=== PATIENT | female | born 1970 | race Caucasian/White ===

== ENCOUNTER → 2017-03-11 | Outpatient (CLI) | payer BC ==
[~2017-03-11] MED LIST: EPIN0.3I6; HYDR200T3; LEVO112T2; NIFE60TA6; OMEP40CA2; POLY1POW4; SERT-138; SUMA100T2; TOPI100T9; TOPI50TA9; ZOLP10TA2
[2017-03-11 15:49] LABS: ANION GAP 7 MEQ/L (8-16); BLOOD UREA NITROGEN 20 MG/DL (7-18); CALCIUM LEVEL 8.9 MG/DL (8.5-10.1); CARBON DIOXIDE LEVEL 27 MEQ/L (21-32); CHLORIDE LEVEL 105 MEQ/L (98-107); CREATININE FOR GFR 0.77 MG/DL (0.55-1.02); GLOMERULAR FILTRATION RATE > 60.0 (>58); GLUCOSE, FASTING 92 MG/DL (70-105); POTASSIUM SERUM 4.2 MEQ/L (3.5-5.1); SODIUM LEVEL 139 MEQ/L (136-145)
[2017-03-12 10:44] LABS: FREE T4 0.69 NG/DL (0.76-1.46)
== END ==
LOC: M LAB 14:42
PROVIDERS: ATTEND Emergency Medicine
DX: R60.9 Edema, unspecified (principal); E03.9 Hypothyroidism, unspecified

== ENCOUNTER 2017-04-21 20:16 | Emergency (ER) | payer BC ==
[~2017-04-21] VITALS: Ht 162.6 cm; Wt 79.1 kg
[2017-04-21] MEDS ORDERED: OMEP40CA2 (20:43)
[2017-04-21] MEDS ORDERED: POLY1POW4 (20:43)
[2017-04-21] MEDS ORDERED: HYDR200T3 (20:43)
[2017-04-21] MEDS ORDERED: TOPI50TA9 (20:43)
[2017-04-21] MEDS ORDERED: ZOLP10TA2 (20:43)
[2017-04-21] MEDS ORDERED: EPIN0.3I6 (20:43)
[2017-04-21] MEDS ORDERED: SERT-138 (20:43)
[2017-04-21] MEDS ORDERED: LEVO112T2 (20:43)
[2017-04-21] MEDS ORDERED: TOPI100T9 (20:43)
[2017-04-21] MEDS ORDERED: SUMA100T2 (20:43)
[2017-04-21] MEDS ORDERED: NIFE60TA6 (20:43)
--- NOTE | 2017-04-21 22:50 | REPUSA ---
Clinical history: antecubital mass. Findings: Real-time ultrasound imaging of the right arm in the antecubital region was performed. Ther e is a well circumscribed echogenic lesion at the site of concern measuring 2.2 by 0.9 I 1.7 cm. No i nfiltrative changes are noted. Normal heterogeneous fibroglandular tissue is otherwise noted. No refugio dence of calcifications are appreciated. No other gross abnormalities. Impression: Findings consistent with a benign lipoma.
[2017-04-22 00:07] VITALS: BP 112/65
--- NOTE | 2017-04-22 09:39 | REP ---
Clinical: Pain and swelling. Technique: AP and lateral views of the right forearm. Comparison: Wrist dated 02/04/2017. Findings: The patient is status post open reduction and fixation for distal radial metaphyseal fracture. Overlying cast material is appreciated. No obvious new, acute fracture, dislocation or obvious pathology is appreciated. Impression: No obvious acute fracture dislocation. As above. Signed by Tal Lamas MD 04/22/2017 09:31 A
== END 2017-04-22 00:11 | disposition home or self-care (01) ==
LOC: M ED 20:16
DX: Z47.89 Encounter for other orthopedic aftercare (principal); D17.39 Benign lipomatous neoplasm of skin and subcutaneous tissue of other sites

== ENCOUNTER 2017-08-09 11:21 | Emergency (ER) | payer BC ==
[~2017-08-09] VITALS: Ht 162.6 cm; Wt 78.5 kg
--- NOTE | 2017-08-09 13:42 | REP ---
Left knee series: Five views. History: Trauma. Findings: Five views of the left knee demonstrate mild diffuse osteopenia. There is no visible fracture or subluxation. No joint effusion is seen. Impression: No fracture noted. Signed by Garfield Grullon MD 08/09/2017 01:33 P
--- NOTE | 2017-08-09 13:43 | REP ---
LEFT ANKLE SERIES: Four views. HISTORY: Trauma. FINDINGS: Four views of the left ankle demonstrate Achilles and plantar calcaneal spurring. There is a small accessory ossicle adjacent to the lateral malleolus. This is unchanged from the December 12, 2012 prior study. No fracture is seen. The mortise is intact. IMPRESSION: No traumatic abnormality noted. Heel spurring and small lateral accessory ossicle. Signed by Garfield Grullon MD 08/09/2017 03:57 P
--- NOTE | 2017-08-09 13:44 | REP ---
LEFT SHOULDER, THREE VIEWS: There is no evidence of an acute fracture, dislocation or intrinsic bone disease. IMPRESSION: No fracture or dislocation. Signed by Leandro Reese MD 08/09/2017 03:53 P
[2017-08-09 14:07] VITALS: BP 118/64
== END 2017-08-09 14:08 | disposition home or self-care (01) ==
LOC: EDBD 11:21 → M ED 11:21
DX: S80.02XA Contusion of left knee, initial encounter (principal); S90.02XA Contusion of left ankle, initial encounter; S40.012A Contusion of left shoulder, initial encounter; W01.0XXA Fall on same level from slipping, tripping and stumbling without subsequent striking against object, initial encounter; Y92.410 Unspecified street and highway as the place of occurrence of the external cause; Y93.89 Activity, other specified; Y99.8 Other external cause status; Z79.899 Other long term (current) drug therapy; Z91.030 Bee allergy status

== ENCOUNTER → 2018-05-23 | Outpatient (CLI) | payer BC ==
[2018-05-23 12:40] LABS: BASO # 0.1 10^3/uL (0.0-0.2); BASO % 0.9 % (0.0-1.0); EOS # 0.4 10^3/uL (0.0-0.50); EOS % 8.1 % (0.0-3.0); HEMATOCRIT 39.5 % (36.0-47.0); HEMOGLOBIN 12.2 g/dl (12.0-15.5); IMMATURE GRANULOCYTE % 0.8 % (0-3.0); LYMPH # 1.1 10^3/uL (1.5-4.5); LYMPH % 21.2 % (24.0-44.0); MEAN CORPUSCULAR HGB CONC 30.9 g/dl (32.0-36.5); MEAN CORPUSCULAR VOLUME 90.6 fl (80.0-96.0); MONO # 0.5 10^3/uL (0.0-0.8); MONO % 9.6 % (0.0-5.0); NEUTROPHILS # 3.1 10^3/uL (1.8-7.7); NEUTROPHILS % 59.4 % (36.0-66.0); PLATELET COUNT, AUTOMATED 242 10^3/uL (150-450); RED BLOOD COUNT 4.36 10^6/uL (4.00-5.40); RED CELL DISTRIBUTION WIDTH 14.2 % (11.5-14.5); WHITE BLOOD COUNT 5.3 10^3/uL (4.0-10.0)
[2018-05-23 13:04] LABS: ALBUMIN 3.7 GM/DL (3.2-5.2); ALBUMIN/GLOBULIN RATIO 0.97 (1.00-1.93); ALKALINE PHOSPHATASE 75 U/L (45-117); ALT/SGPT 30 U/L (12-78); ANION GAP 9 MEQ/L (8-16); AST/SGOT 24 U/L (7-37); BILIRUBIN,TOTAL 0.2 MG/DL (0.2-1.0); BLOOD UREA NITROGEN 18 MG/DL (7-18); CALCIUM LEVEL 7.9 MG/DL (8.5-10.1); CARBON DIOXIDE LEVEL 26 MEQ/L (21-32); CHLORIDE LEVEL 110 MEQ/L (98-107); CHOLESTEROL LEVEL 249 MG/DL (<200); CHOLESTEROL RISK RATIO 2.515 (<5); CREATININE FOR GFR 0.78 MG/DL (0.55-1.30); FREE T4 0.82 NG/DL (0.76-1.46); GLOMERULAR FILTRATION RATE > 60.0 (>58); GLUCOSE, FASTING 89 MG/DL (70-100); HDL CHOLESTEROL 99 MG/DL (>40); LDL CHOLESTEROL 136 MG/DL (<100); NON-HDL-C 150 MG/DL; POTASSIUM SERUM 4.3 MEQ/L (3.5-5.1); SODIUM LEVEL 145 MEQ/L (136-145); TOTAL PROTEIN 7.5 GM/DL (6.4-8.2); TRIGLYCERIDES LEVEL 68 MG/DL (<150)
[2018-05-23 13:08] LABS: ERYTHROCYTE SEDIMENTATION RATE 10 mm/hr (0-20)
== END ==
LOC: M LAB 11:23
DX: E03.9 Hypothyroidism, unspecified (principal); R19.7 Diarrhea, unspecified; G40.409 Other generalized epilepsy and epileptic syndromes, not intractable, without status epilepticus; M32.9 Systemic lupus erythematosus, unspecified
CPT/HCPCS: 83735

== ENCOUNTER → 2018-06-06 | Outpatient (REF) | payer BC | LOC: M LAB REF 09:33 | DX: S81.809A Unspecified open wound, unspecified lower leg, initial encounter (principal) | CPT/HCPCS: 87186 ==

== ENCOUNTER → 2018-07-13 | Outpatient (REF) | payer BC | LOC: M LAB REF 10:27 | DX: R19.7 Diarrhea, unspecified (principal) | CPT/HCPCS: 87507 ==

== ENCOUNTER → 2019-03-08 | Outpatient (CLI) | payer BC ==
[~2019-03-08] MED LIST changes: +EPIN0.3I11; -EPIN0.3I6; -POLY1POW4; +POLY33503
[2019-03-08 10:19] LABS: BASO % 0.8 % (0.0-1.0); EOS # 0.6 10^3/uL (0.0-0.50); EOS % 11.6 % (0.0-3.0); HEMATOCRIT 38.5 % (36.0-47.0); HEMOGLOBIN 12.2 g/dl (12.0-15.5); LYMPH # 1.2 10^3/uL (1.5-4.5); LYMPH % 22.2 % (24.0-44.0); MEAN CORPUSCULAR HEMOGLOBIN 28.3 pg (27.0-33.0); MEAN CORPUSCULAR HGB CONC 31.7 g/dl (32.0-36.5); MEAN CORPUSCULAR VOLUME 89.3 fl (80.0-96.0); MONO # 0.5 10^3/uL (0.0-0.8); MONO % 9.5 % (0.0-5.0); NEUTROPHILS # 2.9 10^3/uL (1.8-7.7); NEUTROPHILS % 55.7 % (36.0-66.0); PLATELET COUNT, AUTOMATED 217 10^3/uL (150-450); RED BLOOD COUNT 4.31 10^6/uL (4.00-5.40); WHITE BLOOD COUNT 5.3 10^3/uL (4.0-10.0)
[2019-03-08 11:09] LABS: ALBUMIN 3.7 GM/DL (3.2-5.2); ALT/SGPT 24 U/L (12-78); BILIRUBIN,TOTAL < 0.1 MG/DL (0.2-1.0); BLOOD UREA NITROGEN 18 MG/DL (7-18); CALCIUM LEVEL 8.2 MG/DL (8.5-10.1); CARBON DIOXIDE LEVEL 25 MEQ/L (21-32); CHLORIDE LEVEL 116 MEQ/L (98-107); CHOLESTEROL LEVEL 209 MG/DL (<200); CHOLESTEROL RISK RATIO 2.322 (<5); CREATININE FOR GFR 0.78 MG/DL (0.55-1.30); FREE T4 0.78 NG/DL (0.76-1.46); GLOMERULAR FILTRATION RATE > 60.0 (>58); GLUCOSE, FASTING 99 MG/DL (70-100); HDL CHOLESTEROL 90 MG/DL (>40); LDL CHOLESTEROL 103 MG/DL (<100); NON-HDL-C 119 MG/DL; POTASSIUM SERUM 3.9 MEQ/L (3.5-5.1); SODIUM LEVEL 148 MEQ/L (136-145); TOTAL PROTEIN 7.3 GM/DL (6.4-8.2); TRIGLYCERIDES LEVEL 82 MG/DL (<150)
== END ==
LOC: M LAB 10:02
PROVIDERS: ATTEND Physician Assistant
DX: E78.2 Mixed hyperlipidemia (principal); E03.9 Hypothyroidism, unspecified; E32.9 Disease of thymus, unspecified

== ENCOUNTER 2019-04-05 12:05 | Emergency (ER) | payer BC ==
[~2019-04-05] VITALS: Ht 160 cm; Wt 83.3 kg
[2019-04-05] MEDS ORDERED: ANAS0.12 (13:13)
[2019-04-05] MEDS ORDERED: TOPA200T7 (13:13)
[2019-04-05] MEDS ORDERED: CVS2CAP PO (13:13)
[2019-04-05 17:29] VITALS: BP 127/70
--- NOTE | 2019-04-06 10:05 | REP ---
RIGHT LOWER EXTREMITY DOPPLER VENOUS ULTRASOUND: 04/05/2019. Comparison: 03/26/2019. Clinical history: Right lower extremity swelling, evaluate for DVT. Technique: The deep venous system of the right lower extremity is evaluated with martinez scale imaging, compression ultrasound, color imaging and duplex Doppler interrogation. Examination from the groin through the popliteal fossa into the proximal calf. Findings: There is full compressibility from the common femoral vein in the inguinal region through the popliteal vein. Color imaging confirms patency throughout the course of the deep venous system. There is respiratory variation and augmented flow at all levels. Impression: 1. No Doppler venous ultrasound evidence of DVT in the right lower extremity. Electronically Signed by Ernesto Gilmore MD 04/06/2019 10:18 A
== END 2019-04-05 17:29 | disposition home or self-care (01) ==
LOC: M ED 12:05
DX: R22.41 Localized swelling, mass and lump, right lower limb (principal); I10 Essential (primary) hypertension; K21.9 Gastro-esophageal reflux disease without esophagitis; G43.909 Migraine, unspecified, not intractable, without status migrainosus; E03.9 Hypothyroidism, unspecified; G40.909 Epilepsy, unspecified, not intractable, without status epilepticus; F42.9 Obsessive-compulsive disorder, unspecified; L98.3 Eosinophilic cellulitis [Wells]; M34.1 CR(E)ST syndrome; Z79.899 Other long term (current) drug therapy; Z79.890 Hormone replacement therapy

== ENCOUNTER → 2019-04-15 | Outpatient (REF) | payer BC ==
[~2019-04-15] MED LIST changes: +ANAS0.12; +CVS2CAP PO; +TOPA200T7
== END ==
LOC: M LAB REF 12:40
PROVIDERS: ATTEND Physician Assistant
DX: S80.211A Abrasion, right knee, initial encounter (principal)

== ENCOUNTER 2019-04-19 22:03 | Emergency (ER) | payer BC ==
[~2019-04-19] VITALS: Ht 162.6 cm; Wt 83.2 kg
[2019-04-19 22:03] VITALS: BP 125/67
== END 2019-04-19 22:50 | disposition home or self-care (01) ==
LOC: M ED 22:03
DX: R60.0 Localized edema (principal); K21.9 Gastro-esophageal reflux disease without esophagitis; E07.9 Disorder of thyroid, unspecified; Z91.030 Bee allergy status; Z79.899 Other long term (current) drug therapy

== ENCOUNTER → 2019-04-27 | Outpatient (CLI) | payer BC ==
--- NOTE | 2019-04-30 17:16 | REP ---
Bilateral lower extremity MR venography: Without contrast: History: Intermittent pain and swelling and discoloration in the posterolateral aspect of the right calf rule out calf venous thrombosis. Technique: 3-D [id number] MR venography is acquired lower extremities without contrast. This was reviewed and at my discretion, IV contrast injection was omitted. Maximum intensity projection images are generated from the source axial images and viewed rotationally. MR venographic findings: There is good visualization of the deep venous system from the groins to the distal calves bilaterally. The common femoral and profunda femoral veins are patent bilaterally. The femoral veins are patent bilaterally. Popliteal veins are normal and symmetric. Venous confluence appears to be intact bilaterally. There is no evidence of calf vein DVT. No cyst or mass is seen in either calf. Impression: No MR evidence of deep venous thrombosis in either lower extremity. Electronically Signed by Garfield Grullon MD 04/28/2019 09:12 A
== END ==
LOC: M RAD 14:47
PROVIDERS: ATTEND Physician Assistant
DX: M79.661 Pain in right lower leg (principal)

== ENCOUNTER → 2020-02-22 | Outpatient (CLI) | payer BC ==
[~2020-02-22] MED LIST changes: -CVS2CAP PO; +LOPE-25 PO; +NIFE1TAB51; -NIFE60TA6; -OMEP40CA2; +OMEP40CA97
[2020-02-22 11:23] LABS: BASO % 0.7 % (0.0-1.0); EOS # 0.6 10^3/uL (0.0-0.5); EOS % 9.1 % (0.0-3.0); HEMATOCRIT 37.4 % (36.0-47.0); HEMOGLOBIN 11.4 g/dl (12.0-15.5); LYMPH # 1.4 10^3/uL (1.5-5.0); LYMPH % 23.4 % (24.0-44.0); MEAN CORPUSCULAR HEMOGLOBIN 27.4 pg (27.0-33.0); MEAN CORPUSCULAR HGB CONC 30.5 g/dl (32.0-36.5); MEAN CORPUSCULAR VOLUME 89.9 fl (80.0-96.0); MONO # 0.6 10^3/uL (0.0-0.8); MONO % 9.6 % (0.0-5.0); NEUTROPHILS # 3.5 10^3/uL (1.5-8.5); NEUTROPHILS % 56.9 % (36.0-66.0); PLATELET COUNT, AUTOMATED 228 10^3/uL (150-450); RED BLOOD COUNT 4.16 10^6/uL (4.00-5.40); WHITE BLOOD COUNT 6.2 10^3/uL (4.0-10.0)
[2020-02-22 11:34] LABS: ALBUMIN 3.7 GM/DL (3.2-5.2); ALT/SGPT 27 U/L (12-78); BILIRUBIN,TOTAL 0.1 MG/DL (0.2-1.0); BLOOD UREA NITROGEN 21 MG/DL (7-18); CARBON DIOXIDE LEVEL 26 MEQ/L (21-32); CHLORIDE LEVEL 113 MEQ/L (98-107); CHOLESTEROL LEVEL 217 MG/DL (<200); CHOLESTEROL RISK RATIO 2.494 (<5); CREATININE FOR GFR 0.85 MG/DL (0.55-1.30); FREE T4 0.81 NG/DL (0.76-1.46); GLOMERULAR FILTRATION RATE > 60.0 (>51); GLUCOSE, FASTING 89 MG/DL (70-100); HDL CHOLESTEROL 87 MG/DL (>40); LDL CHOLESTEROL 115 MG/DL (<100); NON-HDL-C 130 MG/DL; POTASSIUM SERUM 4.5 MEQ/L (3.5-5.1); SODIUM LEVEL 144 MEQ/L (136-145); TOTAL PROTEIN 7.2 GM/DL (6.4-8.2); TRIGLYCERIDES LEVEL 75 MG/DL (<150)
== END ==
LOC: M PLALAB 09:43
PROVIDERS: ATTEND Physician Assistant
DX: E03.9 Hypothyroidism, unspecified (principal); I73.00 Raynaud's syndrome without gangrene; R05 Cough

== ENCOUNTER → 2020-04-14 | Outpatient (CLI) | payer BC, MEDICARE ==
[~2020-04-14] MED LIST changes: +AMBI10TA PO; +DICY10CA13 PO; +MINO100C4 PO
[2020-04-14 17:18] LABS: FREE T4 0.81 NG/DL (0.76-1.46); IMMUNOGLOBULIN A 97.7 MG/DL (70-400); THYROID STIMULATING HORMONE 0.482 uIU/ML (0.358-3.740)
== END ==
LOC: M LAB 16:04
PROVIDERS: ATTEND Internal Medicine Gastroenterology
DX: R19.7 Diarrhea, unspecified (principal)

== ENCOUNTER → 2020-04-16 | Outpatient (REF) | payer BC ==
[2020-04-28 15:07] LABS: FATS NEUTRAL Normal (.); FATS TOTAL Normal (.); PANCREATIC ELASTASE STOOL >500 (>200)
== END ==
LOC: M LAB REF 12:30
PROVIDERS: ATTEND Internal Medicine Gastroenterology
DX: R19.7 Diarrhea, unspecified (principal)

== ENCOUNTER → 2020-04-29 | Outpatient (CLI) | payer BC ==
--- NOTE | 2020-05-19 09:32 | REP ---
ABDOMINAL SITZ MARKER STUDY TECHNIQUE: Two supine views of the abdomen and pelvis. FINDINGS: The bowel gas pattern is nonspecific and no residual sitz markers are identified. Evidence for prior cholecystectomy noted. No organomegaly. Skeletal structures demonstrate chronic dextroconvex scoliosis. IMPRESSION: * Nonspecific bowel gas pattern. * No residual sitz markers noted. MTDD
== END ==
LOC: M RAD 14:26
PROVIDERS: ATTEND Internal Medicine Gastroenterology
DX: R19.7 Diarrhea, unspecified (principal)

== ENCOUNTER → 2020-05-21 | Outpatient (CLI) | payer BC | LOC: M LABSMTC 10:42 | PROVIDERS: ATTEND Anesthesiology | DX: Z01.812 Encounter for preprocedural laboratory examination (principal); Z20.828 Contact with and (suspected) exposure to other viral communicable diseases | CPT/HCPCS: C9803; U0002 ==

== ENCOUNTER 2020-05-24 13:09 | Day surgery (SDC) | payer BC ==
[~2020-05-24] VITALS: Ht 160 cm; Wt 84.7 kg
[~2020-05-24 13:09] MED LIST changes: +LIDOCAINE 2% 100MG/5ML SDV (FOR ANES.) As Ordered ONE; +NS 1,000 ML IV ONE; +propofoL 200 MG/20 ML VIAL As Ordered ONE
[2020-05-24] MEDS ORDERED: fentaNYL 100 MCG/2 ML INJECTION (J3010) As Ordered ONE (13:49)
--- NOTE | 2020-05-24 14:51 | ROOR ---
Patient Name: Anastasia Roblero Procedure Date: 05/24/2020 2:31 PM Date of : 1970 Age: 50 Room: [facility] Gender: Female Note Status: Finalized Procedure: Upper GI endoscopy Indications: Heartburn Providers: Bacilio GOFF MD Referring MD: Laura GUARDADO Requesting Provider: Medicines: Monitored Anesthesia Care Complications: No immediate complications. Procedure: Pre-Anesthesia Assessment: - The heart rate, respiratory rate, oxygen saturations, blood pressure, adequacy of pulmonary ventilation, and response to care were monitored throughout the procedure. The Endoscope was introduced through the mouth, and advanced to the second part of duodenum. The upper GI endoscopy was accomplished without difficulty. The patient tolerated the procedure well. Findings: Moderately severe esophagitis was found in the lower third of the esophagus. Biopsies were taken with a cold forceps for histology. Small Hiatal Hernia. The entire examined stomach was normal. The examined duodenum was normal. Impression: - Moderately severe reflux esophagitis. Rule out Lindsey's esophagus. Biopsied. - Small Hiatal Hernia. - Normal stomach. - Normal examined duodenum. Recommendation: - Use Prilosec (omeprazole) 40 mg PO BID. - (the script was sent to your pharmacy on file) Bacilio Goff MD Bacilio GOFF MD 05/24/2020 2:51:13 PM Electronically signed by Bacilio GOFF MD Number of Addenda: 0 Note Initiated On: 05/24/2020 2:31 PM Estimated Blood Loss: Estimated blood loss: none.
[2020-05-24] MEDS ORDERED: propofoL 200 MG/20 ML VIAL As Ordered ONE (15:03)
--- NOTE | 2020-05-24 15:17 | ROOR ---
Patient Name: Anastasia Roblero Procedure Date: 05/24/2020 2:32 PM Date of : 1970 Age: 50 Room: [facility] Gender: Female Note Status: Finalized Procedure: Colonoscopy Indications: Generalized abdominal pain, Clinically significant diarrhea of unexplained origin, Suspected irritable bowel syndrome Providers: Bacilio MARQUEZ MD Referring MD: Laura GUARDADO Requesting Provider: Medicines: Monitored Anesthesia Care Complications: No immediate complications. Procedure: Pre-Anesthesia Assessment: - The heart rate, respiratory rate, oxygen saturations, blood pressure, adequacy of pulmonary ventilation, and response to care were monitored throughout the procedure. The Colonoscope was introduced through the anus and advanced to 10 cm into the ileum. The colonoscopy was performed without difficulty. The patient tolerated the procedure well. The quality of the bowel preparation was good. Findings: The perianal and digital rectal examinations were normal. The terminal ileum appeared normal. Three sessile polyps were found in the sigmoid colon, hepatic flexure and ascending colon. The polyps were diminutive in size. These polyps were removed with a cold snare. Resection and retrieval were complete. Mild sigmoid diverticulosis and small internal hemorrhoids. The exam was otherwise normal throughout the examined colon. Biopsies for histology were taken with a cold forceps for evaluation of microscopic colitis. Impression: - The examined portion of the ileum was normal. - Three diminutive polyps in the sigmoid colon, at the hepatic flexure and in the ascending colon, removed with a cold snare. Resected and retrieved. - Mild sigmoid diverticulosis and small internal hemorrhoids. - The colon is otherwise normal. - Biopsies were taken with a cold forceps for evaluation of microscopic colitis. Recommendation: - Use fiber, for example Citrucel, Fibercon, Konsyl or Metamucil. - Use Bentyl (dicyclomine) 20 mg PO TID PRN 30 min AC. - Telephone endoscopist for pathology results in 2 weeks. - Repeat colonoscopy in 3 - 5 years for surveillance based on pathology results. Bacilio Marquez MD Bacilio MARQUEZ MD 05/24/2020 3:16:43 PM Electronically signed by Bacilio MARQUEZ MD Number of Addenda: 0 Note Initiated On: 05/24/2020 2:32 PM Estimated Blood Loss: Estimated blood loss: none.
[2020-05-24 15:54] VITALS: BP 104/55
== END 2020-05-24 16:01 | disposition home or self-care (01) ==
LOC: M OPP 13:09
PROVIDERS: ATTEND Internal Medicine Gastroenterology
DX: K63.5 Polyp of colon (principal); K57.30 Diverticulosis of large intestine without perforation or abscess without bleeding; K64.8 Other hemorrhoids; R10.84 Generalized abdominal pain; R19.7 Diarrhea, unspecified; K44.9 Diaphragmatic hernia without obstruction or gangrene; K21.9 Gastro-esophageal reflux disease without esophagitis; R12 Heartburn; Z79.899 Other long term (current) drug therapy; Z88.8 Allergy status to other drugs, medicaments and biological substances; Z91.030 Bee allergy status
CPT/HCPCS: 43239; 45380; 45385; 88305; J3010

== ENCOUNTER 2020-08-18 20:52 | Emergency (ER) | payer BC ==
[~2020-08-18] VITALS: Ht 162.6 cm; Wt 84.5 kg
[~2020-08-18 20:52] MED LIST changes: -LIDOCAINE 2% 100MG/5ML SDV (FOR ANES.) As Ordered ONE; -LOPE-25 PO; +LOPE-26 PO; -NS 1,000 ML IV ONE; -propofoL 200 MG/20 ML VIAL As Ordered ONE
[2020-08-18] MEDS ORDERED: ONDANSETRON 4 MG ORAL DISINTEGRATING TAB PO ONE (21:45)
[2020-08-18] MEDS ORDERED: NORCO, ANEXSIA 5/325MG TABLET (HYDROcodone/ACETAMINOPHEN) PO ONE (21:45)
--- NOTE | 2020-08-18 21:52 | REPVR ---
PROCEDURE INFORMATION: Exam: XR Left Wrist Exam date and time: 08/18/2020 9:03 PM Age: 50 years old Clinical indication: Injury or trauma; Fall; Fracture, traumatic injury; Closed fracture; Wrist; Left TECHNIQUE: Imaging protocol: XR Left wrist. Views: 3 or more views. COMPARISON: No relevant prior studies available. FINDINGS: Diffuse soft tissue swelling involving the wrist. No evidence of an open injury. No foreign body. Impacted transverse acute appearing distal radial metaphyseal fracture centered 12 mm proximal to the distal articular surface, with mild less than 10 degree dorsal tilt of the distal articular surface. No associated ulna fracture. No obvious intra-articular component. Carpal bones align normally in joint spaces are maintained. No scaphoid fracture IMPRESSION: Transverse acute distal radial metaphyseal fracture with mild dorsal articular surface tilt but minimal displacement and no radiographic evidence of a significant articular surface impaction Electronically signed by: Jeff Hussein On 08/18/2020 21:53:02 PM
[2020-08-18] MEDS ORDERED: NORC1TAB7 PO (22:11)
[2020-08-18] MEDS ORDERED: OXYCODONE/APAP 5MG/325MG(BULK FOR ED) 1 TABLET PO ONE (22:15)
[2020-08-18] MEDS ORDERED: NORCO 5/325MG TABLET (BULK FOR ED) PO ONE (22:15)
[2020-08-18 22:36] VITALS: BP 111/58
== END 2020-08-18 22:41 | disposition home or self-care (01) ==
LOC: M ED 20:52
DX: S52.592A Other fractures of lower end of left radius, initial encounter for closed fracture (principal); W19.XXXA Unspecified fall, initial encounter; Y92.099 Unspecified place in other non-institutional residence as the place of occurrence of the external cause; Y93.9 Activity, unspecified; Y99.9 Unspecified external cause status; K21.9 Gastro-esophageal reflux disease without esophagitis; G40.909 Epilepsy, unspecified, not intractable, without status epilepticus; F42.9 Obsessive-compulsive disorder, unspecified; Z79.899 Other long term (current) drug therapy; Z91.030 Bee allergy status
CPT/HCPCS: 29125; 73110; 99284; Q0162

== ENCOUNTER → 2020-08-22 | Outpatient (CLI) | payer BC ==
[~2020-08-22] MED LIST changes: +NORC1TAB7 PO
--- NOTE | 2020-08-23 08:25 | REP ---
INDICATION: PAIN. COMPARISON: Comparison radiographs August 18, 2020.. TECHNIQUE: Three views obtained through overlying cast material. FINDINGS: AP and lateral views taken through overlying cast material demonstrate a slightly impacted distal radial metaphyseal fracture with 4 mm of dorsal displacement. This is similar in alignment to the comparison study August 18, 2020. IMPRESSION: Distal radial metaphyseal fracture with slight displacement and impaction. X-rays through overlying plaster. <Electronically signed by Aric Grullon > 08/22/20 [id number]
== END ==
LOC: M SOG 08:49 → M SMT 08:49
PROVIDERS: ATTEND Orthopaedic Surgery Sports Medicine
DX: S52.592D Other fractures of lower end of left radius, subsequent encounter for closed fracture with routine healing (principal); W19.XXXD Unspecified fall, subsequent encounter; Y92.099 Unspecified place in other non-institutional residence as the place of occurrence of the external cause

== ENCOUNTER → 2020-08-29 | Outpatient (CLI) | payer BC ==
--- NOTE | 2020-08-30 09:28 | REP ---
INDICATION: F/U. COMPARISON: 08/22/2020. TECHNIQUE: Two views left wrist. FINDINGS: Overlying splint obscures underlying osseous detail. Fracture of the distal radius does not appear to have changed in position. IMPRESSION: Stable position and alignment of distal radial fracture. <Electronically signed by Leandro Reese > 08/30/20 [id number]
== END ==
LOC: M SOG 15:45
PROVIDERS: ATTEND Orthopaedic Surgery Sports Medicine
DX: S52.322A Displaced transverse fracture of shaft of left radius, initial encounter for closed fracture (principal)

== ENCOUNTER → 2020-09-05 | Outpatient (CLI) | payer BC ==
--- NOTE | 2020-09-06 09:51 | REP ---
INDICATION: F/U FX. COMPARISON: 08/22/2020, 08/29/2020 TECHNIQUE: AP and lateral views of the left wrist FINDINGS: Examination is limited by overlying cast material. Fracture of the distal radial metaphysis again noted. IMPRESSION: Continued evidence for distal radial metaphyseal fracture. <Electronically signed by Tal Lamas > 09/06/20 [id number]
== END ==
LOC: M SOG 15:11
PROVIDERS: ATTEND Orthopaedic Surgery Sports Medicine
DX: S52.322D Displaced transverse fracture of shaft of left radius, subsequent encounter for closed fracture with routine healing (principal); X58.XXXD Exposure to other specified factors, subsequent encounter

== ENCOUNTER → 2020-09-15 | Outpatient (CLI) | payer BC ==
--- NOTE | 2020-09-15 18:11 | REP ---
INDICATION: A. Follow-up COMPARISON: 09/05/2020, 08/18/2020 TECHNIQUE: AP, lateral views of the left wrist FINDINGS: Transverse fracture through the distal radial metaphysis with dorsal angulation and overlying soft tissue swelling is again appreciated. A very subtle cortical irregularity at the scaphoid waist the represent scaphoid fracture and cannot be further evaluated on current exam. Correlation and follow-up with complete wrist series may be warranted. Underlying pancarpal arthritic changes noted. IMPRESSION: 1. Transverse fracture through the distal radial metaphysis with dorsal angulation again noted and warrants clinical/physical correlation to exclude superimposed acute injury. 2. Limited views cannot exclude congenital cortical irregularity versus subtle fracture of the scaphoid waist. Consider complete wrist radiograph series if necessary. <Electronically signed by Tal Lamas > 09/15/20 [id number]
== END ==
LOC: M SOG 15:59
PROVIDERS: ATTEND Orthopaedic Surgery Sports Medicine
DX: S52.322D Displaced transverse fracture of shaft of left radius, subsequent encounter for closed fracture with routine healing (principal); X58.XXXD Exposure to other specified factors, subsequent encounter; Y92.9 Unspecified place or not applicable

== ENCOUNTER → 2020-09-22 | Outpatient (CLI) | payer BC ==
--- NOTE | 2020-09-23 03:21 | REP ---
INDICATION: F/U LEFT WRIST FX. COMPARISON: 09/15/2020 TECHNIQUE: AP and lateral views of the left wrist FINDINGS: Transverse fracture through the distal radial metaphysis with posterior angulation (Colles fracture) again noted and unchanged in positioning. Distal ulna and carpal bones appear intact and stable. The small cortical irregularity along the lateral margin of the scaphoid bone is unchanged in appearance and this likely represents a small congenital cortical defect rather than fracture. IMPRESSION: Colles fracture of the distal radius. As above. <Electronically signed by Tal Lamas > 09/23/20 [id number]
== END ==
LOC: M SOG 11:28
PROVIDERS: ATTEND Orthopaedic Surgery Sports Medicine
DX: S52.322A Displaced transverse fracture of shaft of left radius, initial encounter for closed fracture (principal)

== ENCOUNTER → 2020-10-03 | Outpatient (CLI) | payer BC ==
--- NOTE | 2020-10-03 18:46 | REP ---
INDICATION: RECHECK LEFT WRIST. COMPARISON: 09/22/2020 TECHNIQUE: AP, lateral views of the left wrist FINDINGS: Evaluation is limited by overlying cast material. There is a transverse mildly displaced fracture through the distal radial metaphysis essentially unchanged in appearance compared to prior examination. Evaluation for subtle periosteal reaction and callus formation is limited by overlying cast material.. Underlying generalized age-related degenerative changes noted. IMPRESSION: Continued evidence for transverse fracture through the distal radial metaphysis. <Electronically signed by Tal Lamas > 10/03/20 [id number]
== END ==
LOC: M SOG 15:33
PROVIDERS: ATTEND Orthopaedic Surgery Sports Medicine
DX: S52.322A Displaced transverse fracture of shaft of left radius, initial encounter for closed fracture (principal); X58.XXXA Exposure to other specified factors, initial encounter; Y92.9 Unspecified place or not applicable

== ENCOUNTER → 2020-10-11 | Outpatient (CLI) | payer BC ==
--- NOTE | 2020-10-11 10:18 | REP ---
INDICATION: PAIN/SWELLING/MASS LT UPPER ARM, R/O DVT. COMPARISON: None. TECHNIQUE: Left upper extremity duplex venous scanning. FINDINGS: The left internal jugular, axillary, brachial, basilic, and cephalic veins are anechoic and compressible in the left upper extremity. Color flow imaging is homogeneous. Spectral Doppler interrogation is unremarkable. There is no evidence of left upper extremity venous thrombosis. There is a 4 x 4 x 7 mm hypoechoic area superficial to the basilic vein in the left antecubital fossa which may be old granulation tissue, lymph node, or prior small hematoma.. IMPRESSION: Negative left upper extremity duplex venous ultrasound. No evidence of venous thrombosis. 4 x 4 x 7 mm hypoechoic area in the soft tissues just anterior to the left basilic vein in the antecubital fossa, likely related to previous IV site. <Electronically signed by Aric Grullon > 10/11/20 [id number]
== END ==
LOC: M RAD 09:14
PROVIDERS: ATTEND Nurse Practitioner Family
DX: R22.32 Localized swelling, mass and lump, left upper limb (principal)

== ENCOUNTER → 2020-11-14 | Outpatient (CLI) | payer BC ==
--- NOTE | 2020-11-15 04:14 | REP ---
INDICATION: F/U FX. COMPARISON: 10/29/2020 TECHNIQUE: AP and lateral views of the left wrist FINDINGS: There is a healing transverse fracture of the distal radial metaphysis with mild dorsal angulation. IMPRESSION: Healing stable fracture of the distal radial metaphysis. <Electronically signed by Tal Lamas > 11/15/20 0412
== END ==
LOC: M SOG 15:29
PROVIDERS: ATTEND Orthopaedic Surgery Sports Medicine
DX: S52.592D Other fractures of lower end of left radius, subsequent encounter for closed fracture with routine healing (principal)

== ENCOUNTER → 2021-03-30 | Outpatient (CLI) | payer BC ==
[~2021-03-30] MED LIST changes: +OMEP40CA4; -OMEP40CA97
[2021-03-30 12:09] LABS: BLOOD UREA NITROGEN 16 MG/DL (7-18); CARBON DIOXIDE LEVEL 26 MEQ/L (21-32); CHLORIDE LEVEL 114 MEQ/L (98-107); CREATININE FOR GFR 0.69 MG/DL (0.55-1.30); GLOMERULAR FILTRATION RATE > 60.0 (>51); GLUCOSE, FASTING 93 MG/DL (70-100); POTASSIUM SERUM 3.8 MEQ/L (3.5-5.1); SODIUM LEVEL 144 MEQ/L (136-145)
[2021-03-30 12:10] LABS: ALBUMIN 3.9 GM/DL (3.2-5.2); ALT/SGPT 25 U/L (12-78); BILIRUBIN,TOTAL 0.2 MG/DL (0.2-1.0); CALCIUM LEVEL 8.4 MG/DL (8.5-10.1); CHOLESTEROL LEVEL 239 MG/DL (<200); CHOLESTEROL RISK RATIO 2.569 (<5); FREE T4 0.96 NG/DL (0.76-1.46); HDL CHOLESTEROL 93 MG/DL (>40); LDL CHOLESTEROL 132 MG/DL (<100); NON-HDL-C 146 MG/DL; THYROID STIMULATING HORMONE 0.493 uIU/ML (0.358-3.740); TOTAL PROTEIN 7.3 GM/DL (6.4-8.2); TRIGLYCERIDES LEVEL 68 MG/DL (<150)
[2021-03-30 12:11] LABS: TOTAL 25(OH) VITAMIN D 16.8 NG/ML (30.0-100.0)
== END ==
LOC: M PLALAB 09:01
PROVIDERS: ATTEND Nurse Practitioner Family
DX: Z00.00 Encounter for general adult medical examination without abnormal findings (principal)

== ENCOUNTER 2021-04-26 14:15 | Observation (INO) | payer BC ==
[~2021-04-26] VITALS: Ht 162.6 cm; Wt 81.7 kg
[~2021-04-26 14:15] MED LIST changes: -HYDR200T3; +HYDR200T3 PO; -LEVO112T2; +LEVO112T2 PO; -NIFE1TAB51; +NIFE1TAB51 PO; -OMEP40CA4; +OMEP40CA4 PO; -TOPA200T7; +TOPA200T7 PO; -TOPI100T9; +TOPI100T9 PO
[2021-04-26] MEDS ORDERED: ONDANSETRON 4MG/2ML VIAL IV ONE (16:45)
[2021-04-26] MEDS: NS 1,000 ML IV SCH ×2 (16:45→22:01)
[2021-04-26 17:03] LABS: BASO % 0.4 % (0.0-1.0); HEMATOCRIT 37.6 % (36.0-47.0); HEMOGLOBIN 12.3 g/dl (12.0-15.5); LYMPH # 0.4 10^3/uL (1.5-5.0); LYMPH % 8.6 % (24.0-44.0); MEAN CORPUSCULAR HEMOGLOBIN 27.8 pg (27.0-33.0); MEAN CORPUSCULAR HGB CONC 32.7 g/dl (32.0-36.5); MEAN CORPUSCULAR VOLUME 84.9 fl (80.0-96.0); MONO # 0.2 10^3/uL (0.0-0.8); MONO % 4.7 % (2.0-8.0); NEUTROPHILS % 84.8 % (36.0-66.0); PLATELET COUNT, AUTOMATED 207 10^3/uL (150-450); RED BLOOD COUNT 4.43 10^6/uL (4.00-5.40); WHITE BLOOD COUNT 4.7 10^3/uL (4.0-10.0)
--- NOTE | 2021-04-26 17:04 | REP ---
INDICATION: CHEST PAIN. COMPARISON: Comparison chest x-ray February 27, 2016. TECHNIQUE: Portable upright AP chest radiograph. FINDINGS: There is increased parenchymal opacity in the right base suggesting an infiltrate. Pleural angles are sharp. Heart size is borderline. Pulmonary vasculature is not increased. There is no evidence of pneumothorax. Monitoring electrodes are seen. IMPRESSION: Subtle increased density right base question pneumonia. <Electronically signed by Aric Grullon > 04/26/21 [id number]
[2021-04-26 17:40] LABS: ALBUMIN 3.6 GM/DL (3.2-5.2); ALT/SGPT 61 U/L (12-78); BILIRUBIN,DIRECT < 0.1 MG/DL (0.0-0.2); BILIRUBIN,TOTAL 0.2 MG/DL (0.2-1.0); BLOOD UREA NITROGEN 20 MG/DL (7-18); CALCIUM LEVEL 8.2 MG/DL (8.5-10.1); CARBON DIOXIDE LEVEL 22 MEQ/L (21-32); CHLORIDE LEVEL 111 MEQ/L (98-107); CK-MB VALUE MASS < 1.0 NG/ML (<3.6); CPK CREATINE PHOSPHOKINASE 86 U/L (26-192); CREATININE FOR GFR 0.79 MG/DL (0.55-1.30); GLOMERULAR FILTRATION RATE > 60.0 (>51); GLUCOSE, FASTING 128 MG/DL (70-100); LIPASE 510 U/L (73-393); MB/CK RELATIVE INDEX 1.16 (< OR =4); POTASSIUM SERUM 3.5 MEQ/L (3.5-5.1); SODIUM LEVEL 142 MEQ/L (136-145); THYROID STIMULATING HORMONE 0.264 uIU/ML (0.358-3.740); TOTAL PROTEIN 7.3 GM/DL (6.4-8.2); TROPONIN I < 0.02 NG/ML (< 0.10)
[2021-04-26] MEDS ORDERED: EPIN0.3I11 INJ (18:56)
[2021-04-26] MEDS ORDERED: D31000TA2 PO (18:56)
[2021-04-26] MEDS ORDERED: TESS100C PO (18:56)
[2021-04-26] MEDS ORDERED: ZOLO100T PO (18:56)
[2021-04-26] MEDS ORDERED: HOME MED LIST COMPLETE! XX SCH (19:00)
--- NOTE | 2021-04-26 19:35 | REPVR ---
PROCEDURE INFORMATION: Exam: CT Abdomen And Pelvis Without Contrast Exam date and time: 04/26/2021 6:47 PM Age: 51 years old Clinical indication: Other: Abd pain, vomiting TECHNIQUE: Imaging protocol: Computed tomography of the abdomen and pelvis without contrast. Radiation optimization: All CT scans at this facility use at least one of these dose optimization techniques: automated exposure control; mA and/or kV adjustment per patient size (includes targeted exams where dose is matched to clinical indication); or iterative reconstruction. COMPARISON: CR ABDOMEN,SITZ MARKER STUDY 05/04/2020 2:43 PM FINDINGS: Lungs: Bibasilar ground-glass infiltrates with associated interstitial thickening, predominantly peripheral in distribution. Mediastinal space: Small hiatal hernia. Liver: Mild hepatic steatosis. Gallbladder and bile ducts: Status post cholecystectomy. No biliary ductal dilatation. Pancreas: Marked atrophy of the pancreatic body and tail. Spleen: Unremarkable. Adrenal glands: Normal. No mass. Kidneys and ureters: Nonobstructing bilateral renal calculi. No hydronephrosis. Stomach and bowel: No bowel wall thickening. No obstruction. No pneumatosis. Appendix: Normal. Intraperitoneal space: No free fluid. No organized fluid collection. No free air. Vasculature: Minimal atherosclerotic disease. No aneurysm. Lymph nodes: No pathologically enlarged lymph nodes. Urinary bladder: Unremarkable as visualized. Reproductive: Unremarkable. Bones/joints: No acute osseous abnormality. Osteopenia. Dextroscoliosis. Degenerative changes. Soft tissues: Unremarkable. IMPRESSION: 1. Limited noncontrast examination without CT evidence of acute intra-abdominal or pelvic pathology. 2. Bibasilar ground-glass infiltrates with associated interstitial thickening, predominantly peripheral in distribution. Commonly reported imaging features of COVID-19 pneumonia are present. Other processes such as influenza pneumonia and organizing pneumonia, as can be seen with drug toxicity and connective tissue disease, can cause a similar imaging pattern. (Reference: Antonio) 3. Additional findings, as above. REFERENCES: Antonio Valerio, et al., [employer] Society of [place] Expert Consensus Statement on Reporting Chest CT Findings Related to COVID-19. Endorsed by the Society of [employer] Radiology, the [place] [employer], and [employer]NA. Published November 11, 2019. Electronically signed by: Scott Francis On 04/26/2021 19:34:55 PM
[2021-04-26] MEDS ORDERED: EPINEPHrine INJ 1 MG/ML 1ML AMP SC PRN (20:45)
[2021-04-26] MEDS ORDERED: zolPIDEM TARTRATE 5 MG TAB PO PRN (20:45)
[2021-04-26] MEDS ORDERED: TOPIRAMATE (TopAMAX) 100 MG TAB PO SCH (21:00)
[2021-04-26] MEDS ORDERED: PILL CUTTER 1 EACH XX PRN (21:20)
--- NOTE | 2021-04-26 21:28 | HPEPDOC ---
[facility] Medical History & Physical Date of Admission Apr 26, 2021 Date of Service: Apr 26, 2021 Primary Care Physician: Ami Polanco MD Attending Physician: LAWRENCE LANE MD History and Physical CHIEF COMPLAINT: Nausea/vomiting HISTORY OF PRESENT ILLNESS: Patient is a 51-year-old female who tested positive for Covid on 04/15 and symptomatic with a cough, fever, nausea/vomiting, and most recently inability to tolerate oral intake. She is a poor historian at baseline so some of her history is obtained through her mother, her healthcare proxy, who is also being admitted for Covid pneumonia. Patient states has not been vaccinated. Per her mother, after being exposed to Covid at home she developed a cough the following day that has been getting progressively worse in the sense that every time she coughs she seems to induce vomiting from the coughing fits themselves. As a result she has been unable to also tolerate any oral intake so she was brought here along with her mother for evaluation in the emergency department. REVIEW OF SYSTEMS: Constitutional: Denies fevers, chills, night sweats, or recent unexpected weight change HEENT: Denies headaches, head trauma, no visual changes or eye pain, denies nosebleeds or difficulty swallowing. Cardiovascular: Denies chest pain, palpitations, or orthopnea. Respiratory: Denies wheezing, or shortness of breath GI: Denies abdominal pain, diarrhea, or constipation : Denies pain with urination or frequency Musculoskeletal: Denies joint pain or swelling Neuro/psych: Denies muscle weakness or sensory loss Skin: Denies skin rashes PAST MEDICAL/SURGICAL HISTORY: Epilepsy SLE OCD Anxiety GERD Hx of Wells syndrome Hypothyroidism Hypertension Hx of migraines Thyroidectomy Cholecystectomy Right wrist surgery SOCIAL HISTORY: Denies tobacco use. Denies alcohol use. Denies marijuana, heroin, cocaine, PCP, or other illicit drug use. Lives at home with mother, father, siblings and a dog No history of recent travel. FAMILY HISTORY: Reviewed, non-contributory ALLERGIES: Please see below. HOME MEDICATIONS: Please see below. PHYSICAL EXAMINATION: VITAL SIGNS: See below GENERAL APPEARANCE: Well-appearing female who appears stated age sitting comfortably in bed in no acute distress HEENT: NC, AT, EOMI, no scleral icterus, dry mucous membranes, no pharyngeal erythema. CARDIOVASCULAR: RRR, normal S1-S2. No murmurs, gallops, rubs. LUNGS: Diminished breath sounds bilaterally with mild rhonchi appreciated in right lower lobe. No wheezes, crackles. There is some mild dullness to percussion in the right lower lobe as well. No use of accessory muscles of respiration. ABDOMEN: Soft, non-tender, non-distended, bowel sounds present. No hepatosplenomegaly. No masses or ecchymosis. No CVA tenderness. EXTREMITIES: No swelling or edema NEUROLOGICAL: No focal or sensory deficits. CN II-XII grossly intact. PSYCHIATRIC: Anxious mood and affect LABORATORY DATA: See below. IMAGIN04/26/2021 portable CXR: "IMPRESSION: Subtle increased density right base question pneumonia." 04/26/2021 CT abd/pelvis without contrast: "IMPRESSION: 1. Limited noncontrast examination without CT evidence of acute intra-abdominal or pelvic pathology. 2. Bibasilar ground-glass infiltrates with associated interstitial thickening, predominantly peripheral in distribution. Commonly reported imaging features of COVID-19 pneumonia are present. Other processes such as influenza pneumonia and organizing pneumonia, as can be seen with drug toxicity and connective tissue disease, can cause a similar imaging pattern. (Reference: Antonio) 3. Additional findings, as above. " MICROBIOLOGY: Please see below. Assessment/Plan: Patient is a 51-year-old female presenting with a 12-day history of progressively worsening nausea/vomiting and inability to tolerate p.o. intake in the setting of Covid pneumonia concerning for dehydration #. Dehydration s/p nausea/vomiting -Gentle IVF hydration, BUN mildly elevated with physical exam signs of dehydration -Starting w/ CLD, and advancing as tolerated -Zofran for N/V #. COVID pneumonia -Day 12 of illness, unvaccinated -On RA currently and outside tx window monoclonal therapy -Pro-Wilver <0.05, cancelling Abx -Tessalon perles for cough #.Difficulty caring for self at home -Mom is admitted w/ COVID pneumonia and is heavily involved in care of patient at home. She is concerned about patient's ability to care for herself without her (the mom) present. #. Epilepsy Continue home topiramate #. SLE Continue home Plaquenil #. GERD Continue home omeprazole #. Hypothyroidism Continue home Synthroid #. Anxiety/OCD Continue home Zoloft #. Hypertension Continue home nifedipine #. Insomnia Continue Ambien at significantly lower dose as we do not want to cause any respiratory depression. DVT prophylaxis: Lovenox Disposition: Observation CODE STATUS: Full code Vital Signs Vital Signs Date Time Temp Pulse Resp B/P (MAP) Pulse Ox O2 Delivery O2 Flow Rate FiO2 04/26/21 19:30 57 19 115/65 (82) 94 Room Air 04/26/21 18:00 97.9 Laboratory Data Labs 24H Laboratory Tests 2 04/26/21 16:48: Immature Granulocyte % (Auto) 1.5, Neutrophils (%) (Auto) 84.8H, Lymphocytes (%) (Auto) 8.6L, Monocytes (%) (Auto) 4.7, Eosinophils (%) (Auto) 0.0, Basophils (%) (Auto) 0.4, Neutrophils # (Auto) 4.0, Lymphocytes # (Auto) 0.4L, Monocytes # (Auto) 0.2, Eosinophils # (Auto) 0.0, Basophils # (Auto) 0.0, Nucleated Red Blood Cells % (auto) 0.0, Anion Gap 9, Glomerular Filtration Rate > 60.0, Calcium Level 8.2L, Total Bilirubin 0.2, Direct Bilirubin < 0.1, Aspartate Amino Transf (AST/SGOT) 44H, Alanine Aminotransferase (ALT/SGPT) 61, Alkaline Phosphatase 62, Total Creatine Kinase 86, Creatine Kinase MB < 1.0, Creatine Kinase MB Relative Index 1.16, Troponin I < 0.02, Total Protein 7.3, Albumin 3.6, Albumin/Globulin Ratio 1.0L, Lipase 510H, Thyroid Stimulating Hormone (TSH) 0.264L, Free Thyroxine 1.30 04/26/21 16:58: Influenza A Immunofluorescence NEGATIVE, Influenza B Immunofluorescence NEGATIVE, SARS Antigen (LFIA) NEGATIVE CBC/BMP Laboratory Tests 04/26/21 16:48 Microbiology Microbiology 04/26/21 Blood Culture, Received Pending 04/26/21 Blood Culture, Received Pending 04/26/21 Respiratory Virus Panel (PCR) (CARLI) - Final, Complete SARS-CoV-2 (COVID 19) Home Medications Scheduled Cholecalciferol (Vitamin D3) (Vitamin D3) 1,000 Unit Tablet, 1,000 UNITS PO DAILY Dicyclomine HCl (Dicyclomine HCl) 10 Mg Capsule, 20 MG PO BID BEFORE BREAKFAST AND DINNER Hydroxychloroquine Sulfate (Hydroxychloroquine Sulfate) 200 Mg Tab, 200 MG PO BID Levothyroxine Sodium (Levothyroxine Sodium) 112 Mcg Tab, 112 MCG PO QAM Nifedipine (Nifedipine ER) 60 Mg Tab, 120 MG PO DAILY Omeprazole (Omeprazole) 40 Mg Cap, 40 MG PO DAILY Sertraline Hcl (Zoloft) 100 Mg Tablet, 100 MG PO BID Topiramate (Topiramate) 100 Mg Tab, 100 MG PO BID TAKES WITH 200MG DOSE FOR 300MG BID Topiramate (Topamax) 200 Mg Tablet, 200 MG PO BID TAKES WITH 100MG DOSE FOR 300MG BID Scheduled PRN Benzonatate (Tessalon Perle) 100 Mg Capsule, 200 MG PO TID PRN for COUGH Epinephrine (Epinephrine) 0.3 Mg/0.3 Ml Auto.injct, 0.3 MG INJ ASDIRECTED PRN for ANAPHYLAXIS Zolpidem Tartrate (Ambien) 10 Mg Tablet, 10 MG PO QHS PRN for SLEEP Allergies Coded Allergies: bee venom protein (honey bee) (Verified Allergy, Unknown, hives, 05/24/20) GME ATTESTATION GME ATTESTATION My faculty preceptor for this patient encounter was physically present during the encounter and was fully available. All aspects of the patient interview, examination, medical decision making process, and medical care plan development were reviewed and approved by the faculty preceptor. The faculty preceptor is aware and concurs with the plan as stated in the body of this note and will attest to such by his/her cosignature. ATTENDING NOTE time of service 1020pm I independently examined the patient, reviewed the case with and agree with the findings as documented by . is a 51 yr old w mild COVID admitted for observation pending PFS consult to ensure that she can be discharged home safely. (her mother who takes care of her is also admitted for hypoxemia 2/2 COVID 19) SB FORTE DO Apr 26, 2021 21:[address] MD Apr 26, 2021 23:42
[2021-04-26 21:56] LABS: FERRITIN 244 NG/ML (8-252)
[2021-04-26] MEDS ORDERED: cefTRIAXone SOD 1 GM in D5W MINI-BAG PLUS 50 ML IV SCH (22:00)
[2021-04-26 22:21] LABS: INR 1.08; PROTHROMBIN TIME 14.5 SECONDS (12.7-14.5)
[2021-04-26 22:22] LABS: PARTIAL THROMBOPLASTIN TIME 35.3 SECONDS (25.9-37.0)
[2021-04-26 22:25] LABS: D-DIMER QUANT 971.95 ng/ml (<500)
[2021-04-26] MEDS ORDERED: NS 1,000 ML IV ONE (22:55)
[2021-04-27] MEDS ORDERED: DOXYCYCLINE HYCLATE 100 MG in D5W MINI-BAG PLUS 100 ML IV SCH ×2
[2021-04-27] MEDS: SERTRALINE 100 MG TAB PO SCH ×3 (00:32→20:28)
[2021-04-27] MEDS: TOPIRAMATE (TopAMAX) 100 MG TAB PO SCH ×3 (00:32→20:28)
[2021-04-27] MEDS: HYDROXYCHLOROQUINE 200 MG TAB PO SCH ×3 (00:32→20:28)
[2021-04-27 06:02] VITALS: BP 97/58
--- NOTE | 2021-04-27 06:27 | ECGEPIP ---
[facility] - ED Test Date: 2021-04-26 Pat Name: VERA CUNNINGHAM Department: Room: - Gender: Female Assistant Foreman: : 1970 Requested By: EVENS Mccord Order Number: [id number] Reading MD: Brandon Cleaning Measurements Intervals Morning Sun Rate: 58 P: 75 NH: 138 QRS: 59 QRSD: 72 T: 28 QT: 464 QTc: 455 Interpretive Statements Sinus bradycardia Nonspecific ST and T wave abnormality BASELINE ARTIFACT AFFECTS INTERPRETATION Electronically Signed on 04-27-2021 6:27:39 EDT by Brandon Cleaning
[2021-04-27 07:15] LABS: BASO % 0.2 % (0.0-1.0); EOS % 0.2 % (0.0-3.0); HEMATOCRIT 34.8 % (36.0-47.0); HEMOGLOBIN 11.1 g/dl (12.0-15.5); LYMPH # 0.8 10^3/uL (1.5-5.0); LYMPH % 18.3 % (24.0-44.0); MEAN CORPUSCULAR HEMOGLOBIN 27.3 pg (27.0-33.0); MEAN CORPUSCULAR HGB CONC 31.9 g/dl (32.0-36.5); MEAN CORPUSCULAR VOLUME 85.5 fl (80.0-96.0); MONO # 0.3 10^3/uL (0.0-0.8); NEUTROPHILS # 3.2 10^3/uL (1.5-8.5); NEUTROPHILS % 73.4 % (36.0-66.0); PLATELET COUNT, AUTOMATED 195 10^3/uL (150-450); RED BLOOD COUNT 4.07 10^6/uL (4.00-5.40); WHITE BLOOD COUNT 4.3 10^3/uL (4.0-10.0)
[2021-04-27 07:34] LABS: BLOOD UREA NITROGEN 14 MG/DL (7-18); CALCIUM LEVEL 7.4 MG/DL (8.5-10.1); CARBON DIOXIDE LEVEL 24 MEQ/L (21-32); CHLORIDE LEVEL 114 MEQ/L (98-107); CREATININE FOR GFR 0.67 MG/DL (0.55-1.30); GLOMERULAR FILTRATION RATE > 60.0 (>51); GLUCOSE, FASTING 97 MG/DL (70-100); MAGNESIUM LEVEL 1.9 MG/DL (1.8-2.4); POTASSIUM SERUM 3.2 MEQ/L (3.5-5.1); SODIUM LEVEL 143 MEQ/L (136-145)
[2021-04-27 08:00] VITALS: BP 108/54; O2SAT 94
[2021-04-27] MEDS: ENOXAPARIN 40MG/0.4ML SYRINGE (J1650 PER 10MG) SC SCH (08:58)
[2021-04-27] MEDS: LEVOTHYROXINE 112MCG TABLET (0.112MG) PO SCH (08:58)
[2021-04-27] MEDS: NIFEdipine 30 MG XL TAB PO SCH (09:48)
[2021-04-27] MEDS: OMEPRAZOLE 20 MG CAP PO SCH (09:48)
[2021-04-27] MEDS: DICYCLOMINE 10 MG CAP PO SCH ×2 (09:48→17:03)
[2021-04-27] MEDS ORDERED: POTASSIUM CHLORIDE 10MEQ SR TABLET PO ONE (10:30)
[2021-04-27] MEDS: ONDANSETRON 4MG/2ML VIAL IV PRN ×2 (11:06→21:40)
[2021-04-27] MEDS: BENZONATATE 100MG CAPSULE PO PRN ×2 (11:06→21:40)
[2021-04-27 12:00] VITALS: O2SAT 96
[2021-04-27] MEDS ORDERED: CEPACOL LOZENGE PO PRN (12:35)
[2021-04-27 15:36] VITALS: BP 108/53
--- NOTE | 2021-04-27 15:38 | IPNPDOC ---
Subjective Date Seen The patient was seen on 04/27/21. Subjective Chief Complaint/HPI Patient complaining of severe bouts of coughing episodes of vomiting associated with a cough. The cough is dry with no production of any phlegm. Continues to have poor appetite however has been able to tolerate liquids. No fever or chills. No respiratory difficulty. Just feels very weak and tired. Objective Physical Examination General Exam: Positive: Alert, Cooperative, No Acute Distress Eye Exam: Positive: PERRLA, Conjunctiva & lids normal, EOMI; Negative: Sclera icteric ENT Exam: Positive: Atraumatic, Mucous membr. moist/pink, Pharynx Normal Neck Exam: Positive: Supple; Negative: JVD, thyromegaly Chest Exam: Positive: Other (Fine crackles at both the bases); Negative: Rhonchi, Wheezing Heart Exam: Positive: Rate Normal, Regular Rhythm, Normal S1, Normal S2; Negative: Murmurs, Rubs Abdomen Exam: Positive: Normal bowel sounds, Soft; Negative: Tenderness Extremity Exam: Negative: Clubbing, Cyanosis, Edema Neuro Exam: Positive: Normal Speech, Strength at 5/5 X4 ext, Normal Tone Assessment /Plan Assessment Patient is a 51-year-old female with past medical history of epilepsy, SLE, OCD, anxiety, Wells syndrome, GERD, hypothyroid, hypertension, migraine, intellectual disability dependent on mom for a lot of her day-to-day care who tested positive for Covid on 04/15 and symptomatic with a cough, fever, nausea/vomiting, and most recently inability to tolerate oral intake. She is a poor historian at baseline so some of her history is obtained through her mother, her healthcare proxy, who was also admitted for Covid pneumonia. Patient was admitted for Covid pneumonia with the severe nausea vomiting and inability to tolerate p.o. food. Patient has no hypoxia. I did advance her diet to regular however after having lunch she again vomited it out. She has been able to tolerate liquids. Dehydration s/p nausea/vomiting Received IV fluid Tolerating p.o. liquids Will advance as tolerated Continue symptomatic treatment with Zofran, PPI COVID pneumonia Day 12 of illness, unvaccinated On RA currently and outside tx window monoclonal therapy Tessalon perles for cough Epilepsy Continue home topiramate SLE Continue home Plaquenil GERD Continue home omeprazole Hypothyroidism Continue home Synthroid Anxiety/OCD Continue home Zoloft Hypertension Continue home nifedipine Insomnia Continue Ambien at significantly lower dose as we do not want to cause any respiratory depression. Plan/VTE VTE Prophylaxis Ordered?: Yes VS, I&O, 24H, Fishbone Vital Signs/I&O Vital Signs Date Time Temp Pulse Resp B/P (MAP) Pulse Ox O2 Delivery O2 Flow Rate FiO2 04/27/21 12:00 96 Room Air 04/27/21 09:48 108/52 04/27/21 08:00 96.4 56 18 04/27/21 06:12 2.0 I&O- Last 24 Hours up to 6 AM 04/27/21 06:00 Intake Total 1493 ml Output Total 0 ml Balance 1493 ml Laboratory Data 24H LABS Laboratory Tests 2 04/26/21 16:48: Immature Granulocyte % (Auto) 1.5, Neutrophils (%) (Auto) 84.8H, Lymphocytes (%) (Auto) 8.6L, Monocytes (%) (Auto) 4.7, Eosinophils (%) (Auto) 0.0, Basophils (%) (Auto) 0.4, Neutrophils # (Auto) 4.0, Lymphocytes # (Auto) 0.4L, Monocytes # (Auto) 0.2, Eosinophils # (Auto) 0.0, Basophils # (Auto) 0.0, Nucleated Red Blood Cells % (auto) 0.0, Anion Gap 9, Glomerular Filtration Rate > 60.0, Calcium Level 8.2L, Ferritin 244, Total Bilirubin 0.2, Direct Bilirubin < 0.1, Aspartate Amino Transf (AST/SGOT) 44H, Alanine Aminotransferase (ALT/SGPT) 61, Alkaline Phosphatase 62, Total Creatine Kinase 86, Creatine Kinase MB < 1.0, Creatine Kinase MB Relative Index 1.16, Troponin I < 0.02, Total Protein 7.3, Albumin 3.6, Albumin/Globulin Ratio 1.0L, Lipase 510H, Thyroid Stimulating Hormone (TSH) 0.264L, Free Thyroxine 1.30 04/26/21 16:58: Influenza A Immunofluorescence NEGATIVE, Influenza B Immunofluorescence NEGATI VE, SARS Antigen (LFIA) NEGATIVE 04/26/21 18:13: Procalcitonin <0.05 04/26/21 22:03: Prothrombin Time 14.5H, Prothromb Time International Ratio 1.08, Activated P artial Thromboplast Time 35.3, Fibrinogen 381, D-Dimer, Quantitative 971.95H 04/27/21 06:54: Immature Granulocyte % (Auto) 0.9, Neutrophils (%) (Auto) 73.4H, Lymphocytes (%) (Auto) 18.3L, Monocytes (%) (Auto) 7.0, Eosinophils (%) (Auto) 0.2, Basophils (%) (Auto) 0.2, Neutrophils # (Auto) 3.2, Lymphocytes # (Auto) 0.8L, Monocytes # (Auto) 0.3, Eosinophils # (Auto) 0.0, Basophils # (Auto) 0.0, Nucleated Red Blood Cells % (auto) 0.0, Anion Gap 5L, Glomerular Filtration Rate > 60.0, Calcium Level 7.4L, Magnesium Level 1.9, Procalcitonin <0.05 04/27/21 06:55: 04/27/21 12:13: CBC/BMP Laboratory Tests 04/26/21 16:48 04/27/21 06:54 Microbiology Microbiology 04/26/21 Blood Culture, Received Pending 04/26/21 Blood Culture, Received Pending 04/26/21 Respiratory Virus Panel (PCR) (CARLI) - Final, Complete SARS-CoV-2 (COVID 19) Nicole Yun MD Apr 27, 2021 15:38
[2021-04-27] MEDS: ACETAMINOPHEN TAB 650MG DOSE (2X325MG) PO PRN ×2 (15:40→22:45)
[2021-04-27 16:00] VITALS: O2SAT 96
[2021-04-27 20:00] VITALS: O2SAT 96
[2021-04-28] VITALS: O2SAT 94
[2021-04-28 04:00] VITALS: BP 97/50; O2SAT 94
[2021-04-28] MEDS: LEVOTHYROXINE 112MCG TABLET (0.112MG) PO SCH (05:50)
[2021-04-28 06:12] LABS: BASO % 0.1 % (0.0-1.0); EOS # 0.1 10^3/uL (0.0-0.5); EOS % 1.6 % (0.0-3.0); HEMATOCRIT 35.5 % (36.0-47.0); HEMOGLOBIN 11.2 g/dl (12.0-15.5); LYMPH # 0.7 10^3/uL (1.5-5.0); LYMPH % 9.7 % (24.0-44.0); MEAN CORPUSCULAR HEMOGLOBIN 27.1 pg (27.0-33.0); MEAN CORPUSCULAR HGB CONC 31.5 g/dl (32.0-36.5); MEAN CORPUSCULAR VOLUME 85.7 fl (80.0-96.0); MONO # 0.5 10^3/uL (0.0-0.8); MONO % 6.6 % (2.0-8.0); NEUTROPHILS # 6.1 10^3/uL (1.5-8.5); NEUTROPHILS % 81.1 % (36.0-66.0); PLATELET COUNT, AUTOMATED 209 10^3/uL (150-450); RED BLOOD COUNT 4.14 10^6/uL (4.00-5.40); WHITE BLOOD COUNT 7.5 10^3/uL (4.0-10.0)
[2021-04-28 06:23] LABS: INR 1.32; PROTHROMBIN TIME 16.8 SECONDS (12.7-14.5)
[2021-04-28 06:25] LABS: PARTIAL THROMBOPLASTIN TIME 44.9 SECONDS (25.9-37.0)
[2021-04-28 06:31] LABS: ALBUMIN 2.6 GM/DL (3.2-5.2); ALT/SGPT 48 U/L (12-78); BILIRUBIN,DIRECT 0.1 MG/DL (0.0-0.2); BILIRUBIN,TOTAL 0.4 MG/DL (0.2-1.0); BLOOD UREA NITROGEN 14 MG/DL (7-18); CALCIUM LEVEL 7.8 MG/DL (8.5-10.1); CARBON DIOXIDE LEVEL 24 MEQ/L (21-32); CHLORIDE LEVEL 112 MEQ/L (98-107); CPK CREATINE PHOSPHOKINASE 178 U/L (26-192); CREATININE FOR GFR 0.72 MG/DL (0.55-1.30); FERRITIN 262 NG/ML (8-252); GLOMERULAR FILTRATION RATE > 60.0 (>51); GLUCOSE, FASTING 90 MG/DL (70-100); LDH LACTATE DEHYDROGENASE 335 U/L (84-246); NT-PRO BNP 298 PG/ML (<125); POTASSIUM SERUM 3.5 MEQ/L (3.5-5.1); SODIUM LEVEL 143 MEQ/L (136-145); TOTAL PROTEIN 6.1 GM/DL (6.4-8.2); TROPONIN I < 0.02 NG/ML (< 0.10)
[2021-04-28 07:37] VITALS: BP 96/54
[2021-04-28 08:00] VITALS: O2SAT 96
[2021-04-28] MEDS: SERTRALINE 100 MG TAB PO SCH (08:36)
[2021-04-28] MEDS: TOPIRAMATE (TopAMAX) 100 MG TAB PO SCH (08:36)
[2021-04-28] MEDS: HYDROXYCHLOROQUINE 200 MG TAB PO SCH (08:36)
[2021-04-28] MEDS: OMEPRAZOLE 20 MG CAP PO SCH (08:36)
[2021-04-28] MEDS: DICYCLOMINE 10 MG CAP PO SCH (08:36)
[2021-04-28 08:37] VITALS: BP 96/54
[2021-04-28] MEDS: ENOXAPARIN 40MG/0.4ML SYRINGE (J1650 PER 10MG) SC SCH (08:37)
[2021-04-28] MEDS: NIFEdipine 30 MG XL TAB PO SCH (08:37)
--- NOTE | 2021-04-28 13:07 | DS.PDOC ---
Discharge Summary General Date of Admission Apr 26, 2021 at 21:49 Date of Discharge 04/28/21 Discharge Summary PROCEDURES PERFORMED DURING STAY: [None]. DISCHARGE DIAGNOSES: COVID-19 pneumonia Nausea, vomiting and dehydration SECONDARY DIAGNOSIS: Epilepsy, SLE, OCD, anxiety, Wells syndrome, GERD, hypothyroid, hypertension, migraine, intellectual disability COMPLICATIONS/CHIEF COMPLAINT: Covid-19. HOSPITAL COURSE: Patient is a 51-year-old female with past medical history of epilepsy, SLE, OCD, anxiety, Wells syndrome, GERD, hypothyroid, hypertension, migraine, intellectual disability dependent on mom for a lot of her day-to-day care who tested positive for Covid on 04/15 and symptomatic with a cough, fever, nausea/vomiting, and most recently inability to tolerate oral intake. She is a poor historian at baseline so some of her history is obtained through her mother, her healthcare proxy, who was also admitted for Covid pneumonia. Patient was admitted for Covid pneumonia with the severe nausea vomiting and inability to tolerate p.o. food. Patient has no hypoxia. I did advance her diet to regular however after having lunch she again vomited it out. She has been able to tolerate liquids. Dehydration s/p nausea/vomiting Received IV fluid Tolerating p.o. diet now Continue symptomatic treatment with Zofran, PPI COVID pneumonia Day 14 of illness, unvaccinated On RA currently and outside tx window monoclonal therapy Tessalon pearls for cough Epilepsy Continue home topiramate SLE Continue home Plaquenil GERD Continue home omeprazole Hypothyroidism Continue home Synthroid Anxiety/OCD Continue home Zoloft Hypertension Continue home nifedipine Insomnia Continue Ambien at significantly lower dose as we do not want to cause any respiratory depression. DISCHARGE MEDICATIONS: Please see below. ALLERGIES: Please see below. PHYSICAL EXAMINATION ON DISCHARGE: VITAL SIGNS: Please see below. General Exam: Positive: Alert, Cooperative, No Acute Distress Eye Exam: Positive: PERRLA, Conjunctiva & lids normal, EOMI; Negative: Sclera icteric ENT Exam: Positive: Atraumatic, Mucous membr. moist/pink, Pharynx Normal Neck Exam: Positive: Supple; Negative: JVD, thyromegaly Chest Exam: Positive: Other (Fine crackles at both the bases); Negative: Rhonchi, Wheezing Heart Exam: Positive: Rate Normal, Regular Rhythm, Normal S1, Normal S2; Negative: Murmurs, Rubs Abdomen Exam: Positive: Normal bowel sounds, Soft; Negative: Tenderness Extremity Exam: Negative: Clubbing, Cyanosis, Edema Neuro Exam: Positive: Normal Speech, Strength at 5/5 X4 ext, Normal Tone LABORATORY DATA: Please see below. IMAGING: CT abd and pelvis without contrast. 1. Limited noncontrast examination without CT evidence of acute intra-abdominal or pelvic pathology. 2. Bibasilar ground-glass infiltrates with associated interstitial thickening, predominantly peripheral in distribution. Commonly reported imaging features of COVID-19 pneumonia are present. Other processes such as influenza pneumonia and organizing pneumonia, as can be seen with drug toxicity and connective tissue disease, can cause a similar imaging pattern. (Reference: Alvarez) CXR: FINDINGS: There is increased parenchymal opacity in the right base suggesting an infiltrate. Pleural angles are sharp. Heart size is borderline. Pulmonary vasculature is not increased. There is no evidence of pneumothorax. Monitoring electrodes are seen. IMPRESSION: Subtle increased density right base question pneumonia. ACTIVITY: [As tolerated]. DIET: As tolerated DISCHARGE PLAN: Home DISCHARGE INSTRUCTIONS: PMD in 1 week DISCHARGE CONDITION: [Stable]. TIME SPENT ON DISCHARGE: 35 minutes. Vital Signs/I&Os Vital Signs Date Time Temp Pulse Resp B/P (MAP) Pulse Ox O2 Delivery O2 Flow Rate FiO2 04/28/21 04:00 98.0 64 17 97/50 (66) 94 Room Air 04/27/21 06:12 2.0 I&O- Last 24 Hours up to 6 AM 04/28/21 06:00 Intake Total 1560 ml Balance 1560 ml Laboratory Data Labs 24H Laboratory Tests 2 04/27/21 12:13: 04/28/21 05:36: Immature Granulocyte % (Auto) 0.9, Neutrophils (%) (Auto) 81.1H, Lymphocytes (%) (Auto) 9.7L, Monocytes (%) (Auto) 6.6, Eosinophils (%) (Auto) 1.6, Basophils (%) (Auto) 0.1, Neutrophils # (Auto) 6.1, Lymphocytes # (Auto) 0.7L, Monocytes # (Auto) 0.5, Eosinophils # (Auto) 0.1, Basophils # (Auto) 0.0, Nucleated Red Blood Cells % (auto) 0.0, Prothrombin Time 16.8H, Prothromb Time International Ratio 1.32, Activated Partial Thromboplast Time 44.9H, Fibrinogen 500H, Anion Gap 7L, Glomerular Filtration Rate > 60.0, Calcium Level 7.8L, Ferritin 262H, Total Bilirubin 0.4#, Direct Bilirubin 0.1, Aspartate Amino Transf (AST/SGOT) 34, Alanine Aminotransferase (ALT/SGPT) 48, Alkaline Phosphatase 58, Lactate Dehydrogenase 335H, Total Creatine Kinase 178#, Troponin I < 0.02, YJ-Cmu-L-Type Natriuretic Peptide 298H, Total Protein 6.1L, Albumin 2.6#L, Albumin/Globulin Ratio 0.7L CBC/BMP Laboratory Tests 04/28/21 05:36 Microbiology Microbiology 04/26/21 Blood Culture - Preliminary, Resulted No growth after 24 hours . All specim... 04/26/21 Blood Culture - Preliminary, Resulted No growth after 24 hours . All specim... 04/26/21 Respiratory Virus Panel (PCR) (CARLI) - Final, Complete SARS-CoV-2 (COVID 19) Discharge Medications Scheduled Cholecalciferol (Vitamin D3) (Vitamin D3) 1,000 Unit Tablet, 1,000 UNITS PO MIRIAN Y, (Reported) Dicyclomine HCl (Dicyclomine HCl) 10 Mg Capsule, 20 MG PO BID, (Reported) BEFORE BREAKFAST AND DINNER Hydroxychloroquine Sulfate (Hydroxychloroquine Sulfate) 200 Mg Tab, 200 MG PO BID, (Reported) Levothyroxine Sodium (Levothyroxine Sodium) 112 Mcg Tab, 112 MCG PO QAM, (Repor kvng) Nifedipine (Nifedipine ER) 60 Mg Tab, 120 MG PO DAILY, (Reported) Omeprazole (Omeprazole) 40 Mg Cap, 40 MG PO DAILY, (Reported) Sertraline Hcl (Zoloft) 100 Mg Tablet, 100 MG PO BID, (Reported) Topiramate (Topiramate) 100 Mg Tab, 100 MG PO BID, (Reported) TAKES WITH 200MG DOSE FOR 300MG BID Topiramate (Topamax) 200 Mg Tablet, 200 MG PO BID, (Reported) TAKES WITH 100MG DOSE FOR 300MG BID Scheduled PRN Benzonatate (Tessalon Perle) 100 Mg Capsule, 200 MG PO TID PRN for COUGH, (Repor kvng) Epinephrine (Epinephrine) 0.3 Mg/0.3 Ml Auto.injct, 0.3 MG INJ ASDIRECTED PRN for ANAPHYLAXIS, (Reported) Zolpidem Tartrate (Ambien) 10 Mg Tablet, 10 MG PO QHS PRN for SLEEP, (Reported) Allergies Coded Allergies: bee venom protein (honey bee) (Verified Allergy, Unknown, hives, 05/24/20) Nicole Yun MD Apr 28, 2021 08:02
[2021-04-28 16:10] LABS: MYCOPLASMA PNEUMONIAE IgG 114 U/mL (0-99); MYCOPLASMA PNEUMONIAE IgM <770 U/mL (0-769)
[2021-04-30 13:07] LABS: BODY FLUID CULTURE Not indicated. (.); LEGIONELLA ANTIGEN URINE Negative (Negative); ORGANISM ID Not indicated. (.); SPECIMEN SOURCE Urine (.); URINE STREP PNEUMONIAE ANTIGEN Negative (Negative)
== END 2021-04-28 12:37 | disposition home or self-care (01) ==
LOC: M ED 14:15 → M ED INP 21:49 → M ICU 04-27 05:37
PROVIDERS: ADMIT Internal Medicine; ATTEND Internal Medicine Nephrology
DX: J12.82 Pneumonia due to coronavirus disease 2019 (principal); R11.2 Nausea with vomiting, unspecified; E86.0 Dehydration; G40.909 Epilepsy, unspecified, not intractable, without status epilepticus; M32.9 Systemic lupus erythematosus, unspecified; F79 Unspecified intellectual disabilities; K21.9 Gastro-esophageal reflux disease without esophagitis; E03.9 Hypothyroidism, unspecified; I10 Essential (primary) hypertension; G43.909 Migraine, unspecified, not intractable, without status migrainosus; L98.3 Eosinophilic cellulitis [Wells]; G47.00 Insomnia, unspecified; Z79.899 Other long term (current) drug therapy; Z91.030 Bee allergy status
CPT/HCPCS: 36415; 71045; 74176; 80048; 80076; 82550; 82553; 82728; 83615; 83690; 83735; 83880; 84145; 84439; 84443; 84484; 85025; 85379; 85384; 85610; 85730; 86738; 87040; 87449; 87798; 87899; 93005; 93041; 94760; 96361; 96365; 96372; 96375; 96376; 99285; J0696; J1650; J2405

== ENCOUNTER → 2021-05-04 | Outpatient (CLI) | payer BC ==
[~2021-05-04] MED LIST changes: +D31000TA2 PO; +EPIN0.3I11 INJ; +TESS100C PO; +ZOLO100T PO
--- NOTE | 2021-05-04 15:39 | REP ---
INDICATION: MULTINODULAR GOITER COMPARISON: 04/26/2021 TECHNIQUE: PA and lateral. FINDINGS: Bilateral pleuroparenchymal changes (right greater than left) suggesting multifocal pneumonia and increased from prior examination. No pneumothorax. Cardiac silhouette and mediastinum are normal. Skeletal structures are intact.. IMPRESSION: Findings suggest multifocal pneumonia (right greater than left). <Electronically signed by Tal Lamas > 05/04/21 [id number]
== END ==
LOC: M RAD 14:57
PROVIDERS: ATTEND Nurse Practitioner Family
DX: U07.1 COVID-19 (principal); R05 Cough

== ENCOUNTER → 2021-12-13 | Outpatient (CLI) | payer BC ==
[~2021-12-13] MED LIST changes: -D31000TA2 PO; +VITA100093 PO
== END ==
LOC: M WHC 16:11
PROVIDERS: ATTEND Nurse Practitioner Family
DX: Z12.31 Encounter for screening mammogram for malignant neoplasm of breast (principal)

== ENCOUNTER → 2022-03-22 | Outpatient (CLI) | payer BC ==
[2022-03-22 12:09] LABS: ALBUMIN 3.8 GM/DL (3.2-5.2); ALT/SGPT 25 U/L (12-78); BILIRUBIN,TOTAL 0.2 MG/DL (0.2-1.0); BLOOD UREA NITROGEN 16 MG/DL (7-18); CALCIUM LEVEL 8.4 MG/DL (8.5-10.1); CARBON DIOXIDE LEVEL 25 MEQ/L (21-32); CHLORIDE LEVEL 113 MEQ/L (98-107); CHOLESTEROL LEVEL 216 MG/DL (<200); CHOLESTEROL RISK RATIO 2.204 (<5); CREATININE FOR GFR 0.82 MG/DL (0.55-1.30); FREE T4 0.79 NG/DL (0.76-1.46); GLOMERULAR FILTRATION RATE > 60.0 (>51); GLUCOSE, FASTING 95 MG/DL (70-100); HDL CHOLESTEROL 98 MG/DL (>40); LDL CHOLESTEROL 108 MG/DL (<100); NON-HDL-C 118 MG/DL; POTASSIUM SERUM 3.9 MEQ/L (3.5-5.1); SODIUM LEVEL 144 MEQ/L (136-145); TOTAL PROTEIN 7.5 GM/DL (6.4-8.2); TRIGLYCERIDES LEVEL 52 MG/DL (<150)
[2022-03-22 12:39] LABS: TOTAL 25(OH) VITAMIN D 17.3 NG/ML (30.0-100.0)
== END ==
LOC: M PLALAB 08:18
PROVIDERS: ATTEND Nurse Practitioner Family
DX: Z00.00 Encounter for general adult medical examination without abnormal findings (principal); E03.9 Hypothyroidism, unspecified

== ENCOUNTER → 2022-06-29 | Outpatient (CLI) | payer BC | LOC: M PLALAB 08:48 | PROVIDERS: ATTEND Nurse Practitioner Family | DX: R14.0 Abdominal distension (gaseous) (principal) ==

== ENCOUNTER 2023-03-13 10:06 | Emergency (ER) | payer OTHER, BC ==
[~2023-03-13] VITALS: Ht 162.6 cm; Wt 68.2 kg
[~2023-03-13 10:06] MED LIST changes: +DICY-61 PO; -DICY10CA13 PO; -HYDR200T3 PO; +HYDR200T46 PO; +TOPI-254; -TOPI50TA9
[2023-03-13] MEDS ORDERED: ACETAMINOPHEN 500 MG TAB PO ONE (11:10)
[2023-03-13 12:30] VITALS: BP 124/60; TEMP 97; O2SAT 98
== END 2023-03-13 12:40 | disposition home or self-care (01) ==
LOC: EDBD 10:06 → M ED 10:06
DX: M79.605 Pain in left leg (principal); W01.0XXA Fall on same level from slipping, tripping and stumbling without subsequent striking against object, initial encounter; Y99.0 Civilian activity done for income or pay; R56.9 Unspecified convulsions; E03.9 Hypothyroidism, unspecified; F79 Unspecified intellectual disabilities; Z79.899 Other long term (current) drug therapy; Z91.030 Bee allergy status

== ENCOUNTER → 2023-04-04 | Outpatient (CLI) | payer BC | LOC: M WHC 15:56 | PROVIDERS: ATTEND Nurse Practitioner Family | DX: Z12.31 Encounter for screening mammogram for malignant neoplasm of breast (principal) ==

== ENCOUNTER → 2023-05-04 | Outpatient (CLI) | payer BC ==
[2023-05-04 09:22] LABS: ALKALINE PHOSPHATASE 82 U/L (46-116); ALT/SGPT 22 U/L (7.0-40); AST/SGOT 18 U/L (<34); BILIRUBIN,TOTAL 0.3 MG/DL (0.3-1.2); BLOOD UREA NITROGEN 16 MG/DL (9-23); CALCIUM LEVEL 8.6 MG/DL (8.5-10.1); CARBON DIOXIDE LEVEL 27 MMOL/L (20-31); CHLORIDE LEVEL 112 MMOL/L (98-107); CHOLESTEROL LEVEL 235 MG/DL (<200); CHOLESTEROL RISK RATIO 2.33 (<5); GLOMERULAR FILTRATION RATE > 60.0 (>51); GLUCOSE, FASTING 99 MG/DL (60-100); HDL CHOLESTEROL 100.5 MG/DL (>40); LDL CHOLESTEROL 121.9 MG/DL (<100); NON-HDL-C 134.5 MG/DL; SODIUM LEVEL 146 MMOL/L (136-145); TOTAL PROTEIN 7.3 G/DL (5.7-8.2); TRIGLYCERIDES LEVEL 63 MG/DL (<150)
[2023-05-04 09:26] LABS: THYROID STIMULATING HORMONE 3.541 uIU/ML (0.55-4.78); TOTAL 25(OH) VITAMIN D 22.9 NG/ML (20.0-100.0)
[2023-05-04 09:28] LABS: FREE T4 0.94 NG/DL (0.89-1.76)
== END ==
LOC: M LAB 08:32
PROVIDERS: ATTEND Nurse Practitioner Family
DX: E03.9 Hypothyroidism, unspecified (principal); E55.9 Vitamin D deficiency, unspecified

== ENCOUNTER → 2024-06-29 | Outpatient (CLI) | payer BC ==
[~2024-06-29] MED LIST changes: +TOPI-21; -TOPI-254
[2024-06-29 11:18] LABS: THYROID STIMULATING HORMONE 2.595 uIU/ML (0.55-4.78)
[2024-06-29 11:19] LABS: TOTAL 25(OH) VITAMIN D 40.4 NG/ML (20.0-100.0)
[2024-06-29 11:20] LABS: ALBUMIN 3.8 G/DL (3.2-5.2); ALKALINE PHOSPHATASE 74 U/L (35-104); ALT/SGPT 18 U/L (7.0-40); AST/SGOT 11 U/L (<34); BILIRUBIN,TOTAL 0.3 MG/DL (0.3-1.2); BLOOD UREA NITROGEN 20 MG/DL (9-23); CALCIUM LEVEL 8.7 MG/DL (8.5-10.1); CARBON DIOXIDE LEVEL 26 MMOL/L (20-31); CHLORIDE LEVEL 113 MMOL/L (98-107); CHOLESTEROL LEVEL 220 MG/DL (<200); CHOLESTEROL RISK RATIO 2.44 (<5); CREATININE FOR GFR 0.74 MG/DL (0.55-1.30); GLOMERULAR FILTRATION RATE > 60.0 (>51); GLUCOSE, FASTING 95 MG/DL (60-100); HDL CHOLESTEROL 89.8 MG/DL (>40); NON-HDL-C 130.2 MG/DL; POTASSIUM SERUM 4.1 MMOL/L (3.5-5.1); SODIUM LEVEL 143 MMOL/L (136-145); TOTAL PROTEIN 7.3 G/DL (5.7-8.2); TRIGLYCERIDES LEVEL 96 MG/DL (<150)
[2024-06-29 11:22] LABS: FREE T4 1.02 NG/DL (0.89-1.76)
== END ==
LOC: M LAB 09:55
PROVIDERS: ATTEND Nurse Practitioner Family
DX: E03.9 Hypothyroidism, unspecified (principal); E55.9 Vitamin D deficiency, unspecified

== ENCOUNTER → 2024-07-27 | Outpatient (CLI) | payer BC | LOC: M WHC 15:29 | PROVIDERS: ATTEND Nurse Practitioner Family | DX: Z12.31 Encounter for screening mammogram for malignant neoplasm of breast (principal) ==

== ENCOUNTER → 2025-07-02 | Outpatient (CLI) | payer BC ==
[~2025-07-02] MED LIST changes: -AMBI10TA PO; +TOPI-257 PO; -TOPI100T9 PO; +ZOLP-533 PO; +ZOLP10TA11; -ZOLP10TA2
[2025-07-02 14:37] LABS: BASO # 0.0 10^3/uL (0.0-0.2); BASO % 0.8 % (0.0-1.0); EOS # 0.3 10^3/uL (0.0-0.5); EOS % 5.1 % (0.0-3.0); LYMPH # 1.2 10^3/uL (1.5-5.0); LYMPH % 24.0 % (24.0-44.0); MONO # 0.6 10^3/uL (0.0-0.8); MONO % 11.2 % (2.0-8.0); NEUTROPHILS # 2.9 10^3/uL (1.5-8.5); NEUTROPHILS % 58.7 % (36.0-66.0); PLATELET COUNT, AUTOMATED 277 10^3/uL (150-450); TOTAL 25(OH) VITAMIN D 40.8 NG/ML (20.0-100.0)
[2025-07-02 14:38] LABS: FREE T4 1.02 NG/DL (0.89-1.76)
[2025-07-02 14:39] LABS: ALT/SGPT 18.0 U/L (7.0-40); AST/SGOT 18.0 U/L (<34); CALCIUM LEVEL 8.8 MG/DL (8.5-10.1); CARBON DIOXIDE LEVEL 27.0 MMOL/L (20-31); CHLORIDE LEVEL 111.0 MMOL/L (98-107); CHOLESTEROL LEVEL 231.0 MG/DL (<200); CHOLESTEROL RISK RATIO 2.35 (<5); CREATININE FOR GFR 0.8 MG/DL (0.55-1.30); GLOMERULAR FILTRATION RATE 87.0 (>51); LDL CHOLESTEROL 123.7 MG/DL (<100); NON-HDL-C 133.1 MG/DL; POTASSIUM SERUM 4.1 MMOL/L (3.5-5.1); SODIUM LEVEL 147.0 MMOL/L (136-145); TRIGLYCERIDES LEVEL 47.0 MG/DL (<150)
== END ==
LOC: M PLALAB 09:47
PROVIDERS: ATTEND Nurse Practitioner Family
DX: Z00.00 Encounter for general adult medical examination without abnormal findings (principal); E55.9 Vitamin D deficiency, unspecified; E03.9 Hypothyroidism, unspecified